=== PATIENT | female | born 1980 | race Caucasian/White ===

== ENCOUNTER 2021-03-29 15:41 | Emergency (ER) | payer BC ==
[~2021-03-29] VITALS: Ht 167.6 cm; Wt 68.0 kg
[2021-03-29 15:53] VITALS: BP 118/72
[2021-03-29] MEDS ORDERED: PRED50TA PO (16:20)
[2021-03-29] MEDS ORDERED: DIPH50CA4 PO (16:20)
[2021-03-29] MEDS ORDERED: FAMO-131 PO (16:20)
[2021-03-29] MEDS ORDERED: predniSONE 20 MG TABLET ONE (16:23)
[2021-03-29] MEDS ORDERED: FAMOTIDINE (20 MG) 20 MG TABLET ONE (16:24)
[2021-03-29] MEDS ORDERED: FAMOTIDINE (20 MG) 20 MG TABLET PO ONE (16:30)
[2021-03-29] MEDS ORDERED: predniSONE 10 MG TABLET PO ONE (16:30)
--- NOTE | 2021-03-29 16:34 | NUR ---
Patient discharged to home in stable condition. Written and verbal after care instructions given. Patient verbalizes understanding of instruction.
== END 2021-03-29 16:34 | disposition home or self-care (01) ==
LOC: ER 15:48
DX: R22.0 Localized swelling, mass and lump, head (principal); T78.1XXA Other adverse food reactions, not elsewhere classified, initial encounter; Y92.89 Other specified places as the place of occurrence of the external cause
CPT/HCPCS: 99283; J7512 ×2